=== PATIENT | female | born 1955 | race Caucasian/White ===

== ENCOUNTER 2025-02-04 15:30 | Outpatient (RCR) | payer MEDICARE, SELFPAY | END 2025-06-04 23:59 | disposition home or self-care (01) | PROVIDERS: PCP Family Medicine; Visit Provider Family Medicine | DX: M54.2 Cervicalgia (principal); R20.2 Paresthesia of skin; M54.12 Radiculopathy, cervical region; M25.512 Pain in left shoulder; M62.830 Muscle spasm of back; Z51.89 Encounter for other specified aftercare | CPT/HCPCS: 97012; 97032; 97110; 97140; 97161 ==